=== PATIENT | male | born 1985 | race Caucasian/White ===

== ENCOUNTER 2019-05-06 19:18 | Emergency (ER) | payer OTHER ==
[~2019-05-06] VITALS: Ht 175.3 cm; Wt 56.7 kg
[2019-05-06 19:41] VITALS: BP 131/74
[2019-05-06] MEDS ORDERED: ACETAMINOPHEN ES 500 MG TABLET ONE (20:12)
[2019-05-06] MEDS ORDERED: ACETAMINOPHEN 325 MG TABLET PO ONE (20:30)
[2019-05-14] MEDS ORDERED: SULF1TAB48 PO (10:29)
== END 2019-05-06 20:17 | disposition home or self-care (01) ==
LOC: ER 19:19
DX: L03.317 Cellulitis of buttock (principal); F19.10 Other psychoactive substance abuse, uncomplicated; F17.200 Nicotine dependence, unspecified, uncomplicated

== ENCOUNTER 2019-05-09 21:14 | Emergency (ER) | payer OTHER ==
[~2019-05-09] VITALS: Ht 175.3 cm; Wt 56.7 kg
[2019-05-09 21:14] VITALS: BP 109/55
[2019-05-14] MEDS ORDERED: SULF1TAB48 PO (10:29)
== END 2019-05-09 21:58 | disposition home or self-care (01) ==
LOC: ER 21:15
DX: L03.317 Cellulitis of buttock (principal); F17.200 Nicotine dependence, unspecified, uncomplicated; F19.10 Other psychoactive substance abuse, uncomplicated

== ENCOUNTER 2019-05-10 21:36 | Emergency (ER) | payer OTHER ==
[~2019-05-10] VITALS: Ht 172.7 cm; Wt 56.7 kg
[2019-05-10 22:21] VITALS: BP 126/77
[2019-05-10] MEDS ORDERED: LIDOCAINE VISCOUS 2% UD 15 ML UDC ONE (23:24)
[2019-05-10] MEDS ORDERED: MAG HYDROX/AL HYDROX/SIMETH 30 ML UDC ONE (23:24)
[2019-05-10] MEDS ORDERED: MAG HYDROX/AL HYDROX/SIMETH 30 ML UDC PO ONE (23:30)
[2019-05-10] MEDS ORDERED: LIDOCAINE VISCOUS 2% UD 15 ML UDC MM ONE (23:30)
[2019-05-14] MEDS ORDERED: SULF1TAB48 PO (10:29)
== END 2019-05-10 23:41 | disposition home or self-care (01) ==
LOC: ER 21:38
DX: L03.317 Cellulitis of buttock (principal); F19.10 Other psychoactive substance abuse, uncomplicated; F17.200 Nicotine dependence, unspecified, uncomplicated

== ENCOUNTER 2019-05-12 20:48 | Inpatient (IN) | payer OTHER ==
[~2019-05-12] VITALS: Ht 172.7 cm; Wt 55.4 kg
--- NOTE | 2019-05-12 20:49 | NUR ---
PT BIBSELF C/O L BUTTOCK CELLULITIS WOUND CHECK. PT WAS SEEN HERE 2 DAYS AGO. NO DRAINAGE NOTED. NO OPEN WOUND. REDNESS NOTED. PT ADMITS TO DRUG USE. PT AOX4. NAD NOTED. RESP EVEN AND UNLABORED. PT ON MONITOR IN BED 18. WILL CONTINUE TO MONITOR.
[2019-05-12] MEDS ORDERED: VANCOMYCIN 1 GM in IV D5W 250 ML IV ONE (22:00)
[2019-05-12] MEDS ORDERED: PIPERACILLIN /TAZOBACTAM 3.375 G in IV D5W 50 ML IV ONE (22:00)
[2019-05-12] MEDS ORDERED: IV NS 0.9% 1,000 ML BAG IV ONE (22:00)
[2019-05-12] MEDS ORDERED: IV NS 0.9% 250 ML IV ONE (22:30)
[2019-05-12] MEDS ORDERED: CT SWABBABLE VALVE TRANS SET 1 EA INFUS.SET MC ONE (22:30)
[2019-05-12] MEDS ORDERED: IOHEXOL-300 100 ML VIAL IV ONE (22:30)
[2019-05-12] MEDS ORDERED: PIPERACILLIN /TAZOBACTAM 3.375 G VIAL IV ONE (22:47)
[2019-05-12] MEDS ORDERED: VANCOMYCIN 1 GM VIAL ONE (22:47)
[2019-05-12 22:50] LABS: BASOPHILS % (AUTO) 0.4 % (0.0-2.0); EOSINOPHILS % (AUTO) 1.3 % (0.0-6.0); HEMATOCRIT 36 % (39-51); HEMOGLOBIN 12.1 g/dL (13.5-17.5); LYMPHOCYTES # (AUTO) 1.5 /CMM (0.8-4.8); LYMPHOCYTES % (AUTO) 13.2 % (20.0-44.0); MEAN CORPUSCULAR HGB CONC 33 g/dl (31.0-36.0); MEAN CORPUSCULAR VOLUME 90 fL (80-96); MONOCYTES # (AUTO) 1.3 /CMM (0.1-1.30); MONOCYTES % (AUTO) 11.6 % (2.0-12.0); NEUTROPHILS # (AUTO) 8.4 /CMM (1.8-8.9); NEUTROPHILS % (AUTO) 73.5 % (43.0-81.0); PLATELET COUNT (AUTO) 415 /CMM (150-450); RED BLOOD CELL COUNT(AUTO) 4.05 MIL/uL (4.5-6.0); WHITE BLOOD COUNT (AUTO) 11.4 K/uL (4.3-11.0)
[2019-05-12 23:04] LABS: CALCIUM, SERUM 9.2 mg/dL (8.5-10.1); CARBON DIOXIDE 34 mmol/L (21-32); CHLORIDE 101 mmol/L (98-107); CREATININE 0.8 mg/dL (0.6-1.3); GLUCOSE 125 mg/dL (74-106); POTASSIUM 4.2 mmol/L (3.5-5.1); SODIUM SERUM 139 mmol/L (136-145); UREA NITROGEN, BLOOD 10 mg/dL (7-18)
[2019-05-12 23:22] LABS: ALANINE AMINOTRANSFERASE 20 U/L (12-78); ALBUMIN 2.9 g/dL (3.4-5.0); ALKALINE PHOSPHATASE 108 U/L (46-116); ASPARTATE AMINOTRANSFERASE 20 U/L (15-37); BILIRUBIN,TOTAL 0.1 mg/dL (0.2-1.0); TOTAL PROTEIN, SERUM 6.9 g/dL (6.4-8.2)
--- NOTE | 2019-05-12 23:48 | NUR ---
[id number] INSERTED BY ADI, ON SITE MANAGER
[2019-05-13] VITALS (7 sets, daily range): BP systolic 102–120; BP diastolic 52–67
--- NOTE | 2019-05-13 00:14 | NUR ---
REPORT GIVEN TO JASBIR ROBBINS FOR RAYMOND
[2019-05-13] MEDS ORDERED: MAG HYDROX/AL HYDROX/SIMETH 30 ML UDC PO PRN (00:30)
[2019-05-13] MEDS ORDERED: ZOLPIDEM TARTRATE 5 MG TABLET PO PRN (00:30)
[2019-05-13] MEDS ORDERED: HYDROCODONE/APAP 5/325MG 1 EACH TABLET PO PRN (00:30)
[2019-05-13] MEDS ORDERED: Z GUARD REMEDY 2 OZ OINT TP PRN (00:30)
[2019-05-13] MEDS ORDERED: ACETAMINOPHEN 325 MG TABLET PO PRN (00:30)
[2019-05-13] MEDS ORDERED: ONDANSETRON HCL/PF 4 MG/2 ML VIAL IVP PRN (00:30)
[2019-05-13] MEDS ORDERED: MAGNESIUM HYDROXIDE 30 ML UDC PO PRN (00:30)
--- NOTE | 2019-05-13 00:32 | NUR ---
MS RN NOTE PT ARRIVED TO FLOOR VIA GURNEY ACCOMPANIED BY ER STAFF. PT IN STABLE CONDITION A/O X4, NO SIGNS OF SOB OR DISTRESS, NO C/O PAIN OR N/V. IV IN L EJ IN PLACE, INTACT WITH IVF INFUSING, TOLERATING WELL. ALL CURRENT NEEDS ATTENDED TO. BED LOW, LOCKED, UPPER RAILS UP, AND CALL LIGHT WITHIN REACH. WILL CONT. TO MONITOR. PT BODY ASSESSED, PT ONLY WANTS L BUTTOCK PHOTO TO BE TAKEN, PT DOES NOT WANT BELONGINGS TO BE ASSESSED. RISKS AND BENEFITS MADE AWARE. OLIVER MADE AWARE OF PT ARRIVAL TO FLOOR, ADMITTING ORDERS PROCESSED. AM SURGERY PACKET SIGNED BY PT. NPO STATUS, PT VERBALIZES UNDERSTANDING.
--- NOTE | 2019-05-13 00:32 | NUR ---
MS RN NOTE VANCOMYCIN ARRIVED FROM ER WITH PT. WILL ADMIN.
[2019-05-13] MEDS: IV NS 0.9% 1,000 ML IV PRN ×2 (00:37→12:48)
[2019-05-13] MEDS: MORPHINE SULFATE INJ 2 MG/ML DISP.SYRIN IV PRN ×2 (00:54→04:57)
[2019-05-13] MEDS ORDERED: PIPERACILLIN /TAZOBACTAM 3.375 G VIAL IV ONE (03:49)
--- NOTE | 2019-05-13 03:59 | NUR ---
MS RN NOTE ZOSYN MANUALLY ADMINISTERED. WHEN SCANNED, "NO NDC NUMBER" MEDICATION PULL[facility] FROM [employer] [facility].
[2019-05-13] MEDS ORDERED: PIPERACILLIN /TAZOBACTAM 3.375 G in IV D5W 50 ML IV SCH (04:00)
--- NOTE | 2019-05-13 06:28 | NUR ---
MS RN NOTE PT REMAINS IN STABLE CONDITION A/O X4, NO SIGNS OF SOB OR DISTRESS, NO N/V. PAIN TOLERABLE. IV IN L EJ IN PLACE, INTACT WITH IVF INFUSING, TOLERATING WELL. ALL CURRENT NEEDS ATTENDED TO. BED LOW, LOCKED, UPPER RAILS UP, AND CALL LIGHT WITHIN REACH. WILL CONT. TO MONITOR AND ENDORSE TO NEXT SHIFT FOR RAYMOND.
--- NOTE | 2019-05-13 06:30 | NUR ---
MS RN NOTE CONSENT SIGNED FOR TODAY'S PROCEDURE, AND CHECKLIST STARTED. WILL ENDORSE TO NEXT SHIFT.
[2019-05-13] MEDS ORDERED: FEE PK DOSING 1 MIN EA MC ONE (06:50)
[2019-05-13] MEDS: PANTOPRAZOLE 40 MG TABLET.DR PO SCH (08:04)
[2019-05-13] MEDS: VANCOMYCIN 1 GM in IV D5W 250 ML IV SCH ×2 (08:04→16:04)
[2019-05-13] MEDS ORDERED: METH5TAB2 PO (08:43)
--- NOTE | 2019-05-13 08:45 | NUR ---
RN Notes Pt to preop for I&D to be performed by Dr. Anderson. Pt sent with IVPB Vanco infusing, with zosyn to be infused in OR.
[2019-05-13] MEDS ORDERED: BUPIVACAINE MPF W/EPI 0.25% 30 ML VIAL ONE (09:46)
[2019-05-13] MEDS ORDERED: FENTANYL PF 100MCG/2ML AMPUL ONE (10:09)
[2019-05-13] MEDS: MORPHINE SULFATE INJ 4 MG/ML DISP.SYRIN IV PRN ×3 (12:22→20:56)
[2019-05-13] MEDS: PIPERACILLIN /TAZOBACTAM 3.375 G in IV D5W 50 ML IV SCH ×2 (12:28→17:32)
--- NOTE | 2019-05-13 19:45 | NUR ---
RN OPENING NOTES RECEIVED REPORT FROM DAYSHIFT RN CAMERON. FOUND Pt AWAKE, RESTING IN BED, WATCHING TV. NO S/S OF ACUTE DISTRESS OR SOB NOTED. Pt IS A/OX4, VERBAL AND ABLE TO MAKE NEEDS KNOWN. IV ACCESS ON LEJ #20G, IVF NS RUNNING @100ML/HR. SAFETY MEASURES IN PLACE. BED LOW, LOCKED, HOB ELEVATED, SIDE RAILS UP, CALL LIGHT AND BEDSIDE TABLE WITHIN REACH. BED ALARM ON. WILL CONTINUE TO MONITOR Pt's CONDITION AND SAFETY THROUGHOUT THE NIGHT.
[2019-05-14] MEDS: PIPERACILLIN /TAZOBACTAM 3.375 G in IV D5W 50 ML IV SCH ×2 (00:03→05:38)
[2019-05-14] MEDS: VANCOMYCIN 1 GM in IV D5W 250 ML IV SCH ×2 (00:58→08:19)
[2019-05-14] MEDS: MORPHINE SULFATE INJ 4 MG/ML DISP.SYRIN IV PRN (04:14)
--- NOTE | 2019-05-14 07:30 | NUR ---
M/S RN NOTES PATIENT RESTING IN BED, NO RESPIRATORY DISTRESS, NO C/O PAIN AT THIS TIME. PATIENT'S DRESSING INTACT, WILL DO WOUND TREATMENT ORDERED. PATIENT'S SKIN WARM TO TOUCH, IV ACCESS SITE ON THE LEFT EJ #20G, INTACT AND PATENT, NS INFUSING AT 100ML/HR. PATIENT'S NEEDS ATTENDED, BED ON LOWEST LOCKED POSITION, CALL LIGHT WITHIN REACH. WILL CONTINUE TO MONITOR.
--- NOTE | 2019-05-14 07:56 | NUR ---
RN CLOSING NOTES NO SIGNIFICANT CHANGES IN Pt's CONDITION. NO S/S OF ACUTE DISTRESS OR SOB NOTED DURING THE NIGHT. ALL NEEDS MET AND ATTENDED TO. SAFETY MEASURES IN PLACE. ENDORSED TO DAYSHIFT RN FOR Pt's RAYMOND.
[2019-05-14 08:00] VITALS: BP 104/64
[2019-05-14] MEDS: PANTOPRAZOLE 40 MG TABLET.DR PO SCH (08:19)
[2019-05-14] MEDS: IV NS 0.9% 1,000 ML IV PRN (08:31)
--- NOTE | 2019-05-14 08:45 | NUR ---
WOUND CARE CONSULT: PT PRESENTS WITH SURGICAL WOUND TO LEFT BUTTOCK S/P SURGICAL DEBRIDEMENT. PACKING REMOVED AND DRESSING CHANGED PER SURGEON ORDERS. PT TOLERATED WELL. DISCUSSED SKIN PROTECTION WITH NURSING STAFF. WILL SEE PRN. VILLEDA IN AGREEMENT WITH PLAN OF CARE. Addendum: 05/14/19 at 0846 by RANDAL MCWILLIAMS WNDNU Amended: Links added.
[2019-05-14 09:00] VITALS: BP 104/64
[2019-05-14] MEDS ORDERED: SULF1TAB48 PO (10:29)
--- NOTE | 2019-05-14 11:30 | NUR ---
M/S RN NOTES PATIENT DISCHARGED IN STABLE CONDITION, VSS, NO RESPIRATORY DISTRESS, NO C/O PAIN AT THIS TIME. SKIN WARM TO TOUCH, WOUND TX DONE, LT BUTTOCK WOUND DRESSING C/D/I. SKIN ASSESSED, LT BUTTOCK WOUND PHOTO TAKEN AND PUT IN CHART. PATIENT'S IV REMOVED AND APPLIED PRESSURE DRESSING. PATIENT GIVEN DISCHARGE INSTRUCTIONS, VERBALIZED UNDERSTANDING. PATIENT'S BELONGINGS ACCOUNTED FOR AND SIGNED. PATIENT ESCORTED TO LOBBY VIA WHEELCHAIR, PATIENT LEFT IN PRIVATE CAR. Addendum: 05/14/19 at 1343 by CHIKA TOUSSAINT RN CONTINUED FROM ABOVE NOTES SPOKE TO PATIENT REGARDING CASE MANAGEMENT REFERRAL FOR HOME HEALTH FOR WOUND TX, PATIENT REFUSED GETTING HOME HEALTH, CASE MANAGEMENT AWARE. GAVE RISKS AND BENEFITS AND PATIENT STILL REFUSED. PATIENT WANTED TO LEAVE AMA IF HE STILL NEEDED TO STAY LONGER, SO PATIENT LEFT.
== END 2019-05-14 12:00 | disposition home or self-care (01) | DRG 364 ==
LOC: ER 20:48 → MEDSG2 23:30
PROVIDERS: ADMIT Nurse Practitioner Acute Care; ATTEND Internal Medicine
PROC: 0J990ZZ Drainage of Buttock Subcutaneous Tissue and Fascia, Open Approach (ICD-10-PCS; principal; 2019-05-13)
DX: L03.317 Cellulitis of buttock (principal); E43 Unspecified severe protein-calorie malnutrition; R64 Cachexia; L02.31 Cutaneous abscess of buttock; F17.200 Nicotine dependence, unspecified, uncomplicated; F19.20 Other psychoactive substance dependence, uncomplicated; L03.115 Cellulitis of right lower limb; D64.9 Anemia, unspecified
CPT/HCPCS: 36415; 71045-TC; 72192-TC; 80048-TC; 80076-TC; 80202-TC; 83605-TC; 84484-TC; 85025-TC; 85730-TC; 86850-TC; 87040-TC; 87070-TC; 87081-TC; A6253; G0378; J2270; J2543; J3010; J3370; J3490; J7030; J7050; J7060; Q9967

== ENCOUNTER 2019-05-16 10:33 | Emergency (ER) | payer OTHER ==
[~2019-05-16] VITALS: Ht 172.7 cm; Wt 56.7 kg
[~2019-05-16 10:33] MED LIST: METH5TAB2 PO; SULF1TAB48 PO
[2019-05-16 10:35] VITALS: BP 125/62
== END 2019-05-16 11:31 | disposition home or self-care (01) ==
LOC: ER 10:36
DX: L02.31 Cutaneous abscess of buttock (principal); F19.10 Other psychoactive substance abuse, uncomplicated; F17.200 Nicotine dependence, unspecified, uncomplicated; Z79.899 Other long term (current) drug therapy
CPT/HCPCS: 99282; A6253; A6407

== ENCOUNTER 2019-05-18 17:04 | Emergency (ER) | payer OTHER ==
[~2019-05-18] VITALS: Ht 167.6 cm; Wt 59.9 kg
--- NOTE | 2019-05-18 17:28 | NUR ---
RECHECK TO I&D ON L GLUTEUS. WOUND IS CLEAN AND DRY, WELL APPROXIMATED. NO EVIDENCE OF INFECTION. PT DENIES PAIN, FEVER. NO OTHER MEDICAL COMPLAINTS AT THIS TIME. AOX4, VSS, RR EVEN AND UNLABORED ON RA. READY FOR EVAL.
--- NOTE | 2019-05-18 18:06 | NUR ---
Patient discharged to home in stable condition. Written and verbal after care instructions given. Patient verbalizes understanding of instruction.
[2019-05-18 20:31] VITALS: BP 134/65
== END 2019-05-18 18:10 | disposition home or self-care (01) ==
LOC: ER 17:09
DX: L02.31 Cutaneous abscess of buttock (principal); F19.90 Other psychoactive substance use, unspecified, uncomplicated; F17.200 Nicotine dependence, unspecified, uncomplicated; Z79.899 Other long term (current) drug therapy
CPT/HCPCS: 99283; A6253 ×2; A6407

== ENCOUNTER 2019-05-20 21:16 | Emergency (ER) | payer OTHER ==
[~2019-05-20] VITALS: Ht 175.3 cm; Wt 56.7 kg
--- NOTE | 2019-05-20 21:32 | NUR ---
PT AAOX4. BIBS. C/O WOUND CHECK OF L BUTTOCK WOUND S/P I&D. PLACED ON MONITOR AND PULSE OX. NO ACUTE DISTRESS NOTED. VSS. AWAITING MD FOR EVAL.
--- NOTE | 2019-05-20 22:25 | NUR ---
EMT AT BEDSIDE FOR WOUND CARE.
--- NOTE | 2019-05-20 22:50 | NUR ---
Patient discharged to home in stable condition. Written and verbal after care instructions given. Patient verbalizes understanding of instruction. Pt refused to sign discharge paperworl. VSS.
--- NOTE | 2019-05-20 22:53 | NUR ---
AT BEDSIDE FOR WOUND CARE
[2019-05-20 23:40] VITALS: BP 122/74
== END 2019-05-20 23:40 | disposition home or self-care (01) ==
LOC: ER 21:16
DX: L02.31 Cutaneous abscess of buttock (principal); F11.10 Opioid abuse, uncomplicated; F17.200 Nicotine dependence, unspecified, uncomplicated; Z79.899 Other long term (current) drug therapy
CPT/HCPCS: 99283; A6253; A6407

== ENCOUNTER 2019-09-01 21:31 | Emergency (ER) | payer OTHER ==
[~2019-09-01] VITALS: Ht 172.7 cm; Wt 59.0 kg
[2019-09-01 21:37] VITALS: BP 115/72
[2019-09-01] MEDS ORDERED: ACETAMINOPHEN ES 500 MG TABLET ONE (21:56)
[2019-09-01] MEDS ORDERED: LIDOCAINE /MPF 1% VIAL 5 ML VIAL ONE (21:56)
[2019-09-01] MEDS ORDERED: CEFTRIAXONE 500 MG VIAL ONE (21:56)
[2019-09-01] MEDS ORDERED: SULFAMETH/TRIMETH 800/160 MG 1 UDTAB TABLET ONE (21:57)
[2019-09-01] MEDS: CEFTRIAXONE 500 MG VIAL IM ONE ×2 (22:22→22:24)
[2019-09-01] MEDS: SULFAMETH/TRIMETH 800/160 MG 1 UDTAB TABLET PO ONE ×2 (22:22→22:24)
[2019-09-01] MEDS: ACETAMINOPHEN 325 MG TABLET PO ONE ×2 (22:22→22:24)
== END 2019-09-01 22:26 | disposition home or self-care (01) ==
LOC: ER 21:31
DX: L03.116 Cellulitis of left lower limb (principal); F19.10 Other psychoactive substance abuse, uncomplicated; F17.200 Nicotine dependence, unspecified, uncomplicated; Z79.899 Other long term (current) drug therapy
CPT/HCPCS: 96372; 99283; J0696; J3490